=== PATIENT | female | born 1990 | race Caucasian/White ===

== ENCOUNTER 2019-08-30 21:33 | Emergency (ER) | payer MEDICAID, OTHER ==
[~2019-08-30] VITALS: Ht 160 cm; Wt 68.0 kg
--- NOTE | 2019-08-30 22:22 | ED EENT ---
History of Present Illness General Chief Complaint: Oral/Throat Problems Stated Complaint: SORE THROAT/BODY ACHES Nursing Triage Note: PT COMPLAINING OF A SORE THROAT AND RIGHT EAR PAIN SINCE THIS MORNING Source: patient History of Present Illness Date Seen by Provider: Aug 30, 2019 Time Seen by Provider: 22:22 Initial Comments 29-year-old female presenting with complaints of right ear pain and sore throat since this morning. She is also approximately 5 months . She came in due to the pain was concerned about infection. She has had a mild cough but is not consistent with her. She has not had any fever. She does have generalized body aches. She denies having any significant nasal drainage or congestion. She denies any vaginal bleeding or discharge. She has no abdominal pain. She is not aware of having any specific ill contacts. Allergies and Home Medications Allergies Coded Allergies: Penicillins (Unverified Allergy, Mild, Rash, 09/06/07) Home Medications Pseudoephedrine HCl 30 Mg Tablet, 30 MG PO Q4H PRN for CONGESTION Prescribed by: CHOCO ARRIAGA on 08/30/19 8302 Patient Home Medication List Home Medication List Reviewed: Yes Review of Systems Review of Systems Constitutional: No chills, No fever; malaise Eyes: No Symptoms Reported Ears: Pain (right ear since this morning); Denies Bloody Discharge, Denies Clear Discharge, Denies Purulent Discharge, Denies Serosanguinous Discharge Nose: denies epistaxis, denies pain, denies bloody discharge, denies clear discharge, denies purulent discharge, denies serosanguinous discharge Mouth: no symptoms reported Throat: pain; denies discharge, denies neck stiffness; hoarse, painful swallowing Respiratory: cough (mild occasional cough that is dry); No dyspnea on exertion, No phlegm, No short of breath, No wheezing Cardiovascular: No chest pain Gastrointestinal: no symptoms reported Musculoskeletal: muscle pain (generalized body aches) Skin: No rash Neurological: No Symptoms Reported Hematologic/Lymphatic: No Symptoms Reported, Swollen Glands (right submandibular glands) Past Rrrcmrk-Grujzz-Zunnim Hx Past Med/Social Hx: Reviewed Nursing Past Med/Soc Hx Patient Social History Recent Foreign Travel: No Contact w/Someone Who Travel: No Recent Infectious Disease Expo: No Recent Hopitalizations: No Physical Abuse: No Sexual Abuse: No Mistreated: No Past Medical History Surgeries: Yes Tonsillectomy Respiratory: No Cardiac: No Neurological: No Genitourinary: No Gastrointestinal: No Musculoskeletal: No Endocrine: No HEENT: No Cancer: No Psychosocial: No Integumentary: No Blood Disorders: No Physical Exam Vital Signs Vital Signs - First Documented 08/30/19 21:42 Temp 36.5 Pulse 97 Resp 16 B/P (MAP) 110/62 (78) Pulse Ox 100 O2 Delivery Room Air Height, Weight, BMI Height: '" Weight: lbs. oz. kg; 26.00 BMI Method: General Appearance: WD/WN, no apparent distress Eyes: bilateral eye normal inspection, bilateral eye PERRL, bilateral eye EOMI Ears: right ear other (trace amount of clear fluid behind the TM. There is no erythema.); bilateral ear auricle normal, bilateral ear canal normal, bilateral ear TM normal Nose: normal inspection Mouth/Throat: normal mouth inspection, pharynx normal; No pharynx swelling; pharynx tenderness, other (no significant pharyngeal erythema or exudate pr esent) Neck: full range of motion, supple, lymphadenopathy (R) (submandibular lymph node swollen on the right side and tender to palpation.) Cardiovascular: normal peripheral pulses, regular rate, rhythm Respiratory: chest non-tender, lungs clear, normal breath sounds, no respiratory distress, no accessory muscle use Neurologic/Psychiatric: alert, normal mood/affect, oriented x 3 Skin: normal color, warm/dry; No rash Progress/Results/Core Measures Results/Orders Lab Results Laboratory Tests Test 08/30/19 22:30 Range/Units Group A Streptococcus Screen NEGATIVE NEGATIVE My Orders Orders - CHOCO ARRIAGA MD Rapid Strep A Screen (08/30/19 22:31) Vital Signs/I&O 08/30/19 08/30/19 21:42 23:06 Temp 36.5 Pulse 97 97 Resp 16 16 B/P (MAP) 110/62 (78) 110/62 Pulse Ox 100 100 O2 Delivery Room Air Room Air Blood Pressure Mean: 78 Progress Progress Note #1: Progress Note Rapid strep test obtained to evaluate for strep throat. Counseled patient that just on exam her ear and throat did not look significantly red and there is no dullness or erythema to indicate a severe ear infection currently. However with her symptoms started today could be really early on then an infection. If she is positive for strep throat will certainly start her on some antibiotics. Otherwise once the test his back will check in with Dr. Tolliver from an OB standpoint about medications and treatment Progress Note #2: Progress Note Rapid strep test was negative. A culture will be done but that will take a few days. Continue with symptomatic treatment and after discussion with Dr. Tolliver he recommended Tylenol for pain, Benadryl if needed for congestion, Mucinex to loosen congestion and cough, and Sudafed to try and dry up some of the fluid seen in the right ear to help with her pain. Prescription was provided for this so that it might make it easier for her to obtain the medication. Departure Impression Primary Impression: Otalgia of right ear Additional Impressions: Acute viral pharyngitis Generalized body aches Incidental intrauterine Disposition: 01 HOME, SELF-CARE Condition: Stable Departure-Patient Inst. Decision time for Depature: 22:52 Referrals: ELINA FELDER MD (PCP/Family) Primary Care Physician ANGEL TOLLIVER DO Patient Instructions: Sore Throat, Adult (DC), Viral Pharyngitis (DC), Viral Upper Respiratory Infection, Adult (DC) Add. Discharge Instructions: Stay well hydrated and drink extra fluids to help with your symptoms Taking sudafed would help with some of the fluid and pressure in your ear. Tylenol for pain. You may use Benadryl for congestion and cough. Mucinex would help to loosen congestion and cough as well All discharge instructions reviewed with patient and/or family. Voiced understanding. Scripts Pseudoephedrine HCl (Sudafed) 30 Mg Tablet 30 MG PO Q4H PRN for CONGESTION for 5 Days, #30 TAB 0 Refills Prov: CHOCO ARRIAGA MD 08/30/19 CHOCO ARRIAGA MD Aug 30, 2019 22:22
[2019-08-30] MEDS ORDERED: PSEU-137 PO (22:57)
[2019-08-30 23:06] VITALS: BP 110/62
== END 2019-08-30 23:06 | disposition home or self-care (01) ==
LOC: EDUNIT# 21:33 → ER FS 21:37
DX: H92.01 Otalgia, right ear (principal); J02.9 Acute pharyngitis, unspecified; Z33.1 Pregnant state, incidental; Z88.0 Allergy status to penicillin; Z90.89 Acquired absence of other organs
CPT/HCPCS: 87430; 99284

== ENCOUNTER 2019-12-10 06:00 | Inpatient (IN) | payer MEDICAID ==
[~2019-12-10] VITALS: Ht 162 cm; Wt 78.4 kg
[2019-12-10] VITALS (66 sets, daily range): BP systolic 92–129; BP diastolic 52–77
[~2019-12-10 06:00] MED LIST: PSEU-137 PO
--- NOTE | 2019-12-10 06:05 | NUR ---
ANAMARIA YOUSIF I presented to unit via from ED, accompanied by mother , with c/o INDUCTION 39wks . ANAMARIA YOUSIF I weighed, gowned, voided, and to bed. EFHM and TOCO applied, VS taken. ANAMARIA YOUSIF I oriented to bed controls, call light, TV, heat, and A/C controls.
--- OUTSIDE RECORDS SUMMARY | 2019-12-10 06:07 | XMS REPORT | Continuity of Care Document ---
Author Organization Unknown Address Unknown Phone Unavailable Allergies Active Description Code Type Severity Reaction Onset Reported/Identified Relationship to Patient Clinical Status Yes Penicillins [id number] Drug Aller gy Mild Rash 09/06/2007 Medications There is no data. Problems Date Dx Coded Attending Type Code Diagnosis Diagnosed By 09/03/2019 CHOCO ARRIAGA MD, Ot H92.0 1 OTALGIA, RIGHT EAR 09/03/2019 CHOCO ARRIAGA MD, Ot J02.9 ACUTE PHARYNGITIS, UNSPECIFIED 09/03/2019 CHOCO ARRIAGA MD, Ot R52 PAIN, UNSPECIFIED 09/03/2019 CHOCO ARRIAGA MD, Ot Z33.1 STATE, INCIDENTAL 09/03/2019 CHOCO ARRIAGA MD, Ot Z88.0 ALLERGY STATUS TO PENICILLIN 09/03/2019 CHOCO ARRIAGA MD, Ot Z90.8 9 ACQUIRED ABSENCE OF OTHER ORGANS Procedures There is no data. Results Test Result Range GC/CHLAMYDIA (SWAB OR URINE)-RAPID - 15:41 CHLAMYDIA TRACHOMATIS RNA, TMA NOT DETECTED NOT DETECTED NEISSERIA GONORRHOEAE RNA, TMA DETECTED NOT DETECTED COMMENT NR SUREPATH PAP RFX HPV mRNA E6/E7 - 15:41 CLINICAL INFORMATION: NRG LMP: 01/14/2019 NRG PREV. PAP: AGE 18 NRG PREV. BX: NONE NRG SOURCE: Cervix NRG STATEMENT OF ADEQUACY: NRG INTERPRETATION/RESULT: NRG LEGISLATIVE AIDE: NRG GENERAL CATEGORIZATION: NRG COMMENT: NRG PATHOLOGIST: NRG COMMENT NRG GC/CHLAMYDIA (SWAB OR URINE)-RAPID - 07/23 15:49 CHLAMYDIA TRACHOMATIS RNA, TMA NOT DETECTED NOT DETECTED NEISSERIA GONORRHOEAE RNA, TMA NOT DETECTED NOT DETECTED COMMENT NR SUREPATH PAP RFX HPV mRNA E6/E7 - 15:49 CLINICAL INFORMATION: NRG LMP: NRG PREV. PAP: NRG PREV. BX: NRG SOURCE: Vagina NRG STATEMENT OF ADEQUACY: NRG INTERPRETATION/RESULT: NRG LEGISLATIVE AIDE: NRG REVIEW LEGISLATIVE AIDE: NRG INFECTION: NRG COMMENT NRG HIV ANTIGEN/ANTIBODY - 05/15/19 16:30 HIV AG/AB, 4TH GEN NON-REACTIVE NON-REG CTIVE CBC - 05/15/19 16:30 WHITE BLOOD CELL COUNT 10.7 Thousand/uL 3.8-10.8 RED BLOOD CELL COUNT 4.05 Million/uL 3.8 0-5.10 HEMOGLOBIN 12.6 g/dL 11.7-15.5 HEMATOCRIT 38.7 % 35.0-45.0 MCV 95.6 fL 80.0-100.0 MCH 31.1 pg 27.0-33.0 MCHC 32.6 g/dL 32.0-36.0 RDW 12.2 % 11.0-15.0 PLATELET COUNT 346 Thousand/uL 140-400 MPV 9.4 fL 7.5-12.5 ABSOLUTE NEUTROPHILS 7083 cells/uL 1500- 7800 ABSOLUTE LYMPHOCYTES 2836 cells/uL 850-3 900 ABSOLUTE MONOCYTES 642 cells/uL 200-950 ABSOLUTE EOSINOPHILS 107 cells/uL 15-500 ABSOLUTE BASOPHILS 32 cells/uL 0-200 NEUTROPHILS 66.2 % NRG LYMPHOCYTES 26.5 % NRG MONOCYTES 6.0 % NRG EOSINOPHILS 1.0 % NRG BASOPHILS 0.3 % NRG BLOOD TPYE/RH FACTOR - 05/15/19 16:30 ABO GROUP A NRG RH TYPE RH(D) NEGATIVE NRG ANTIBODY SCREEN - 05/15/19 16:30 ANTIBODY SCREEN, RBC W/REFL ID, TITER AND AG NO ANTIBODIES DETECTED NRG SYPHILIS (RPR W/ REFLEX CONFIRMATION) - 05/15/19 16:30 RPR (DX) W/REFL TITER AND CONFIRMATORY TESTING NON-REACTIVE NON-REACTIVE HEP B SURFACE ANTIGEN - 05/15/19 16:30 HEPATITIS B SURFACE ANTIGEN NON-REACTIVE NON-REACTIVE RUBELLA IMMUNE STATUS - 05/15/19 16:30 RUBELLA ANTIBODY (IGG) 2.07 index NRG QUAD SCREEN - 07/16/19 16:32 Maternal Weight 136 lbs NRG Est'd Date of Delivery 12/17/2019 NRG ISA Determined by LMP NRG Mother's Ethnic Origin NRG Number of Fetuses 1 NRG Insulin Depend Diabetic NO NRG Repeat Specimen NO NRG Hx Of Neural Tube Defects NO NRG Prev Down Synd NO NRG Donor Egg NO NRG Donor Age: Egg Retrieval NOT GIVEN NRG INTERPRETATION: NRG Risk for ONTD <1 IN 5000 NRG Age Risk Down Syndrome 1 IN 940 NRG SHERLY Down Syndrome Risk <1 IN 5000 NRG SHERLY Trisomy 18 Risk <1 IN 5000 NRG AFP, Serum 42.2 ng/mL NRG AFP MoM 0.93 NRG Estriol, Free 1.06 ng/mL NRG Estriol MoM 0.82 NRG hCG, Serum 16.18 IU/mL NRG hCG MoM 0.63 NRG Inhibin A, Dimeric 110 pg/mL NRG Inhibin A MoM 0.63 NRG COMMENTS: NRG COMMENT NRG Calc'd Gestational Age 18.0 weeks NRG Cigarette smoker NOT GIVEN NRG Streptococcus pyogenes antigen detection - 08/30/19 22:30 Streptococcus pyogenes antigen detection NEGATIVE NEGATIVE Bacterial throat culture - 08/30/19 22:3 0 Bacterial throat culture NBS NRG GLUCOSE SAHIL 1 HOUR - 10/04/19 09:38 GLUCOSE, POSTPRANDIAL/ 1 HOUR 135 mg/dL See Note: CBC - 10/04/19 09:38 WHITE BLOOD CELL COUNT 9.9 Thousand/uL 3 .8-10.8 RED BLOOD CELL COUNT 3.59 Million/uL 3.8 0-5.10 HEMOGLOBIN 11.4 g/dL 11.7-15.5 HEMATOCRIT 33.4 % 35.0-45.0 MCV 93.0 fL 80.0-100.0 MCH 31.8 pg 27.0-33.0 MCHC 34.1 g/dL 32.0-36.0 RDW 12.3 % 11.0-15.0 PLATELET COUNT 440 Thousand/uL 140-400 MPV 9.6 fL 7.5-12.5 ABSOLUTE NEUTROPHILS 7395 cells/uL 1500- 7800 ABSOLUTE LYMPHOCYTES 1822 cells/uL 850-3 900 ABSOLUTE MONOCYTES 535 cells/uL 200-950 ABSOLUTE EOSINOPHILS 129 cells/uL 15-500 ABSOLUTE BASOPHILS 20 cells/uL 0-200 NEUTROPHILS 74.7 % NRG LYMPHOCYTES 18.4 % NRG MONOCYTES 5.4 % NRG EOSINOPHILS 1.3 % NRG BASOPHILS 0.2 % NRG SYPHILIS (RPR W/ REFLEX CONFIRMATION) - 10/04/19 09:38 RPR (DX) W/REFL TITER AND CONFIRMATORY TESTING NON-REACTIVE NON-REACTIVE CULTURE, GROUP B STREP (VAGINAL) - 11/14 08:41 STREPTOCOCCUS, GROUP B CULTURE SEE NOTE NRG Encounters ACCT No. Visit Date/Time Discharge Status Pt. Type Provider Facility Loc./Unit Complaint [id number] 12/05/2019 10:00:00 12/05/2019 23:59:5 9 [facility] [id number] 11/15/2019 08:30:00 Document Registration [id number] 10/04/2019 08:30:00 Document Registration [id number] 07/16/2019 15:45:00 Document Registration [id number] 05/15/2019 15:45:00 Document Registration [id number] 01/14/2019 15:00:00 Document Registration [id number] 08/30/2019 21:37:00 019 23:06:00 DIS Outpatient BART SOLIS, CHOCO [facility] ER FS SORE THROAT/BODY ACHES [id number] 12/10/2019 06:00:00 P EN Preadmit ANGEL LEE DO, I NDUCTION
[2019-12-10] MEDS ORDERED: D5 LR IV SOLUTION 1,000 ML IV ONE (06:26)
[2019-12-10 06:33] LABS: BASOPHILS % (AUTO) 0 % (0-10); EOSINOPHILS # (AUTO) 0.2 10^3/uL (0.0-0.3); EOSINOPHILS % (AUTO) 2 % (0-10); HEMATOCRIT 37 % (35-52); HEMOGLOBIN 12.1 G/DL (11.5-16.0); LYMPHOCYTES # (AUTO) 2.7 X 10^3 (1.0-4.0); LYMPHOCYTES % (AUTO) 22 % (12-44); MEAN CORPUSCULAR HEMOGLOBIN 30 PG (25-34); MEAN CORPUSCULAR HGB CONC 33 G/DL (32-36); MEAN CORPUSCULAR VOLUME 92 FL (80-99); MEAN PLATELET VOLUME 9.3 FL (7.4-10.4); MONOCYTES # (AUTO) 1.1 X 10^3 (0.0-1.0); MONOCYTES % (AUTO) 9 % (0-12); NEUTROPHILS # (AUTO) 8.1 X 10^3 (1.8-7.8); NEUTROPHILS % (AUTO) 67 % (42-75); PLATELET COUNT 433 10^3/uL (130-400); RED CELL DISTRIBUTION WIDTH 14.2 % (10.0-14.5)
[2019-12-10] MEDS: D5 LR IV SOLUTION 1,000 ML IV SCH ×2 (06:36→14:34)
[2019-12-10] MEDS ORDERED: fentaNYL 2 mcg/ml BUPIVA 0.125 100 ML ONE (07:09)
--- NOTE | 2019-12-10 07:23 | History & Physical-OB/GYN ---
History of Present Illness History of Present Illness Reason for visit/HPI Ms. Beverly, 39 1/7 weeks gestation, presents to Labor & Delivery for Pitocin Induction of Labor Date of Admission Dec 10, 2019 at 06:01 Date Seen by a Provider: Dec 10, 2019 Time Seen by a Provider: 07:00 I consulted on this patient on 12/10/19 07:18 Attending Physician Pablo Tolliver DO Admitting Physician Pablo Tolliver DO Consult Allergies and Home Medications Allergies Coded Allergies: Penicillins (Unverified Allergy, Mild, Rash, 09/06/07) Home Medications Pseudoephedrine HCl 30 Mg Tablet, 30 MG PO Q4H PRN for CONGESTION Prescribed by: CHOCO ARRIAGA on 08/30/19 5346 Patient Home Medication List Home Medication List Reviewed: Yes Past Fwepccs-Czgmps-Yuvjcd Hx Patient Social History Marrital Status: single Number of Children: 0 Number of living children: 0 Employed/Student: employed Alcohol Use: Denies Use Recreational Drug Use: No Smoking Status: Current Everyday Smoker Recent Hopitalizations: No Surgeries Yes Tonsillectomy Respiratory No Cardiovascular No Neurological No Genitourinary No Gastrointestinal No Musculoskeletal No Endocrine History of Endocrine Disorders: No HEENT History of HEENT Disorders: No Cancer No Psychosocial History of Psychiatric Problem: No Integumentary History of Skin or Integumenta: No Blood Transfusions History of Blood Disorders: No Review of Systems Constitutional: see HPI Physical Exam Physical Exam Vital Signs Vital Signs Date Time Temp Pulse Resp B/P (MAP) Pulse Ox O2 Delivery O2 Flow Rate FiO2 12/10/19 06:40 36.6 103 18 98 Room Air Capillary Refill : Less Than 3 Seconds Labs Laboratory Tests 12/10/19 06:20: White Blood Count 12.0H, Red Blood Count 4.02L, Hemoglobin 12.1, Hematocrit 37, Mean Corpuscular Volume 92, Mean Corpuscular Hemoglobin 30, Mean Corpuscular Hemoglobin Concent 33, Red Cell Distribution Width 14.2, Platelet Count 433H, Mean Platelet Volume 9.3, Neutrophils (%) (Auto) 67, Lymphocytes (%) (Auto) 22, Monocytes (%) (Auto) 9, Eosinophils (%) (Auto) 2, Basophils (%) (Auto) 0, Neutrophils # (Auto) 8.1H, Lymphocytes # (Auto) 2.7, Monocytes # (Auto) 1.1H, Eosinophils # (Auto) 0.2, Basophils # (Auto) 0.0 General Appearance: No Apparent Distress, WD/WN Respiratory: Chest Non Tender, Lungs Clear Cardiovascular: Regular Rate, Rhythm, No Murmur Abdominal: normal bowel sounds Labia: WNL Vagina: WNL Cervix: WNL Cervix OS: open (0.5 cm/40%/-3) Uterus: WNL, Enlarged (Gravid) Extremity: Normal Inspection, Non Tender Assessment/Plan Assessment and Plan Assessment: Intrauterine at 39 1/7 weeks Plan: Pitocin Induction of Labor. AROM. Epidural for antepartum pain management. I expect a normal spontaneous vaginal delivery. Admission Diagnosis Admission Status: Inpatient Order (span 2 midnights) Reason for Inpatient Admission: Pitocin Induction of Labor PABLO TOLLIVER DO Dec 10, 2019 07:23
[2019-12-10] MEDS ORDERED: OXYTOCIN PRE-MIX DRIP 500 ML IV ONE (07:57)
--- NOTE | 2019-12-10 08:05 | NUR ---
0805 Karen TANG CRNA here for epidural placement. Procedure explained, consent reviewed and signed by anesthesia. Questions answered to patient's satisfaction. Time out taken to verify correct patient/procedure. 0809 Patient up to side of bed, assisted into sitting position. 0811 Betadine prep done x3 and sterile drape applied. 0813 Local done, see anesthesia record. 0816 Test dose given, see anesthesia record for drug and dosage. Epidural catheter secured in place. Epidural placement complete. 0820 Assisted back into bed, monitors adjusted. Epidural dosed, see anesthesia record. Epidural of Sufenta/Bupvicaine @12cc/hr stated per pump. Patient tolerated procedure well.
[2019-12-10] MEDS: EPIDURAL (fentaNYL 2 MCG/ML BUPIVA 0.125%)100 ML BAG EPI PRN ×2 (08:25→15:42)
[2019-12-10] MEDS ORDERED: OXYTOCIN PRE-MIX DRIP 500 ML IV SCH ×2 (08:26→21:16)
[2019-12-10] MEDS ORDERED: LACTATED RINGERS 1,000 ML IV SCH (08:38)
[2019-12-10] MEDS ORDERED: METOCLOPRAMIDE INJ 10 MG/2 ML (REGLAN) IV PRN (08:45)
[2019-12-10] MEDS ORDERED: diphenhydrAMINE 50 MG/ML INJ (BENADRYL) IV PRN (08:45)
[2019-12-10] MEDS ORDERED: NALOXONE 0.4 MG/ML 1 ML (NARCAN) VIAL IV PRN ×2 (08:45)
[2019-12-10] MEDS ORDERED: ONDANSETRON 4 MG/2 ML (SDV) Z0FRAN IV PRN (08:45)
[2019-12-10] MEDS ORDERED: ACETAMINOPHEN 500 MG TAB (TYLENOL) PO PRN (15:30)
[2019-12-10] MEDS ORDERED: LIDOCAINE 1% INJ 20 ML 20 ML VIAL ONE (19:38)
--- NOTE | 2019-12-10 21:23 | OB Labor & Delivery Record ---
Vag Delivery Note Vag Delivery Note Date of Delivery: 12/10/19 Preoperative Diagnosis: Mesha melara a (29 /Para / ,Gestational Age (wks)39w Postoperative Diagnosis: Same Surgeon: ANGEL LEE Legal Billing Analyst: [None] Anesthesia: [Epidural and Pudendal Block] Delivery Type: [Normal Spontaneous Vaginal Delivery with Midline Episiotomy and Repair] Findings: [] Viable [Female] infant, apgars [8, 9], weight [4 lb 14 oz] Lacerations: Midline epsiotomy Intact placenta with 3 vessel cord. No nuchal cord, body cord or shoulder dystocia Estimated Blood Loss: [300] ml Complications: Nuchal cord x 2, doubly clamped and cut Condition: Stable Description of Procedure: The patient is a 29 year old female who presented [Pitocin Induction of Labor]. She was admitted and informed consent was obtained. Her labor course was unremarkable. She progressed to complete dilatation and began to push. She was then set up for delivery. The 's head was delivered atraumatically in the [ORALIA] position over a midline episiotomy. Nuchal cord x 2, doubly clamped and cut. The shoulders and remainder of the 's body were then delivered without difficulty. Upon delivery, the head was held below the level of the perineum and the mouth and nares were bulb suctioned. The was handed off to the pediatric staff where NRP protocol was followed. An intact placenta with 3-vessel cord delivered via Nallely and there was found to be minimal bleeding.~ Vigorous fundal massage was performed and the fundus was found to be firm. IV oxytocin was given. Examination of the vagina and perineum revealed the midline episiotomy, which was repaired in the usual fashion with 2-0 and 3-0 vicryl suture. Following the repair, sponge, instrument and needle counts were correct. Mom and baby were both in stable condition in the labor suite. Vitals - Labs Vital Signs - I&O Vital Signs Date Time Temp Pulse Resp B/P (MAP) Pulse Ox O2 Delivery O2 Flow Rate FiO2 12/10/19 18:45 83 18 110/67 (81) 98 Room Air 12/10/19 18:42 36.5 12/10/19 18:30 90 18 116/69 (85) 99 Room Air 12/10/19 18:16 96 18 107/55 (72) 98 Room Air 12/10/19 18:01 94 18 113/64 (80) 98 Room Air 12/10/19 17:46 92 18 115/61 (79) 98 Room Air 12/10/19 17:30 92 18 113/59 (77) 97 Room Air 12/10/19 17:16 88 18 113/56 (75) 97 Room Air 12/10/19 17:00 87 18 112/61 (78) 97 Room Air 12/10/19 16:46 86 18 114/62 (79) 96 Room Air 12/10/19 16:32 84 18 119/59 (79) 96 Room Air 12/10/19 16:15 86 18 120/67 (84) 98 Room Air 12/10/19 16:01 88 18 115/70 (85) 97 Room Air 12/10/19 15:45 36.7 95 18 118/62 (80) 98 Room Air 12/10/19 15:30 88 18 110/63 (79) 97 Room Air 12/10/19 15:15 89 18 110/57 (74) 96 Room Air 12/10/19 15:00 81 18 102/60 (74) 97 Room Air 12/10/19 14:45 90 18 104/62 (76) 98 Room Air 12/10/19 14:33 36.6 12/10/19 14:30 89 18 103/55 (71) 97 Room Air 12/10/19 14:15 90 18 108/58 (75) 98 Room Air 12/10/19 14:00 85 18 105/53 (70) 97 Room Air 12/10/19 13:46 91 18 109/55 (73) 97 Room Air 12/10/19 13:30 89 18 106/63 (77) 97 Room Air 12/10/19 13:15 90 18 101/61 (74) 98 Room Air 12/10/19 13:00 36.7 86 18 99/61 (74) 98 Room Air 12/10/19 12:45 82 18 97/58 (71) 97 Room Air 12/10/19 12:30 81 18 95/55 (68) 97 Room Air 12/10/19 12:15 36.6 90 18 92/52 (65) 97 Room Air 12/10/19 12:00 84 18 98/57 (71) 97 Room Air 12/10/19 11:45 86 18 99/54 (69) 97 Room Air 12/10/19 11:32 87 18 104/57 (73) 96 Room Air 12/10/19 11:15 84 18 98/56 (70) 97 Room Air 12/10/19 11:00 94 18 106/57 (73) 97 Room Air 12/10/19 10:45 93 18 104/55 (71) 97 Room Air 12/10/19 10:32 87 18 107/60 (76) 97 Room Air 12/10/19 10:17 36.7 93 18 111/54 (73) 97 Room Air 12/10/19 10:01 89 18 106/55 (72) 97 Room Air 12/10/19 09:46 84 18 109/60 (76) 98 Room Air 12/10/19 09:42 36.6 12/10/19 09:30 85 18 102/57 (72) 97 Room Air 12/10/19 09:20 36.5 12/10/19 09:16 85 18 107/59 (75) 97 Room Air 12/10/19 09:00 92 18 109/58 (75) 97 Room Air 12/10/19 08:55 93 18 119/70 (86) Room Air 12/10/19 08:49 95 18 107/63 (78) 97 Room Air 12/10/19 08:44 97 18 103/57 (72) 96 Room Air 12/10/19 08:40 91 18 111/59 (76) 97 Room Air 12/10/19 08:36 100 18 129/60 (83) Room Air 12/10/19 08:28 36.9 100 18 109/59 (76) 96 Room Air 12/10/19 08:25 94 18 110/59 (76) Room Air 12/10/19 08:20 102 18 114/59 (77) Room Air 12/10/19 08:17 112 18 122/77 (92) 98 Room Air 12/10/19 08:14 102 18 126/77 (93) Room Air 12/10/19 08:11 101 18 127/62 (83) 98 Room Air 12/10/19 07:09 36.6 12/10/19 06:40 36.6 103 18 98 Room Air Labs Laboratory Tests 4/7/20 06:20: White Blood Count 12.0H, Red Blood Count 4.02L, Hemoglobin 12.1, Hematocrit 37, Mean Corpuscular Volume 92, Mean Corpuscular Hemoglobin 30, Mean Corpuscular Hemoglobin Concent 33, Red Cell Distribution Width 14.2, Platelet Count 433H, Mean Platelet Volume 9.3, Neutrophils (%) (Auto) 67, Lymphocytes (%) (Auto) 22, Monocytes (%) (Auto) 9, Eosinophils (%) (Auto) 2, Basophils (%) (Auto) 0, Neutrophils # (Auto) 8.1H, Lymphocytes # (Auto) 2.7, Monocytes # (Auto) 1.1H, Eosinophils # (Auto) 0.2, Basophils # (Auto) 0.0 ANGEL LEE DO Dec 10, 2019 21:23
[2019-12-10] MEDS ORDERED: MEASLES,MUMPS,RUBELLA 1 EA INJ SQ ONE (21:30)
[2019-12-10] MEDS ORDERED: TETANUS,DIPTH,PERTUSS P/F (BOOSTRIX) 0.5 ML VIAL IM ONE (21:30)
[2019-12-10] MEDS ORDERED: WITCH HAZEL(TUCKS) 40 EA JAR TOP PRN (21:30)
[2019-12-10] MEDS ORDERED: BENZOCAINE/MENTHOL (DERMOPLAST) 60 ML CAN TP PRN (21:30)
[2019-12-10] MEDS ORDERED: DIBUCAINE (NUPERCAINAL) 1% OINT 30 GM TOP PRN (21:30)
[2019-12-10] MEDS ORDERED: LIDOCAINE 1% INJ 20 ML 20 ML VIAL INJ ONE (22:00)
[2019-12-10] MEDS ORDERED: CATHETER FLUSH 10 ML SYR IV SCH (22:00)
[2019-12-10] MEDS: IBUPROFEN 800 MG (MOTRIN) TAB PO SCH (22:36)
--- NOTE | 2019-12-10 23:30 | NUR ---
Pt. ambulated to bathroom with stand by assist without difficulty. Positive void noted.
[2019-12-11] MEDS: ACETAMINOPHEN 500 MG TAB (TYLENOL) PO SCH ×4 (00:39→21:51)
--- NOTE | 2019-12-11 00:45 | NUR ---
Pt. transferred to room 309 via wheelchair, accompanied by family and baby. Pt. oriented to room, call light, and thermostat. PP folder given and explained. Fresh ice water provided.
[2019-12-11 03:50] VITALS: BP 110/65
[2019-12-11 05:49] LABS: BASOPHILS % (AUTO) 0 % (0-10); EOSINOPHILS # (AUTO) 0.1 10^3/uL (0.0-0.3); EOSINOPHILS % (AUTO) 0 % (0-10); HEMATOCRIT 30 % (35-52); HEMOGLOBIN 10.1 G/DL (11.5-16.0); LYMPHOCYTES # (AUTO) 2.2 X 10^3 (1.0-4.0); LYMPHOCYTES % (AUTO) 12 % (12-44); MEAN CORPUSCULAR HEMOGLOBIN 31 PG (25-34); MEAN CORPUSCULAR HGB CONC 34 G/DL (32-36); MEAN CORPUSCULAR VOLUME 92 FL (80-99); MEAN PLATELET VOLUME 9.5 FL (7.4-10.4); MONOCYTES % (AUTO) 6 % (0-12); NEUTROPHILS # (AUTO) 14.9 X 10^3 (1.8-7.8); NEUTROPHILS % (AUTO) 82 % (42-75); PLATELET COUNT 379 10^3/uL (130-400); RED CELL DISTRIBUTION WIDTH 14.3 % (10.0-14.5); WHITE BLOOD COUNT 18.2 10^3/uL (4.3-11.0)
[2019-12-11] MEDS: IBUPROFEN 800 MG (MOTRIN) TAB PO SCH ×2 (06:00→20:08)
[2019-12-11] MEDS ORDERED: PRENATAL VITAMIN 1 EA TAB PO SCH (07:00)
--- NOTE | 2019-12-11 07:23 | Progress Note ---
Standard Progress Note Progress Notes/Assess & Plan Date Seen by a Provider: Dec 11, 2019 Time Seen by a Provider: 07:05 Progress/Assessment & Plan Subjective: Ms. Beverly is PPD#1 from a , her only complaint is that her bottom hurts. States that bleeding has slowed. Objective: Vital signs stable Heart: Regular rate and rhythm without appreciable murmur Lungs: Clear to auscultation with good respiratory effort Abdomen: Good bowel sounds, no rebound or guarding, fundus 8 cm below umbilicus Assessment: PPD#1 Plan: Normal care. Pain management. Comfort care. If continues to be stable, I will discharge her tomorrow. ANGEL LEE DO Dec 11, 2019 07:23
[2019-12-11 08:30] VITALS: BP 89/52
--- NOTE | 2019-12-11 11:06 | NUR ---
Rhogam (2 syringes given) IM. Instructions to pt about receiving Rhogam after delivery, SAB or TAB.
--- NOTE | 2019-12-11 11:07 | Anesthesia-Regional Post-Op ---
Regional Patient Condition Mental Status: Alert, Oriented x3 Circulation: Same as Pre-Op Headache: Absent Sensation: Full Recovery Motor Block: Absent Post Op Complications Complications None Follow Up Care/Instructions Patient Instructions None needed. Anesthesia/Patient Condition Patient is doing well, no complaints, stable vital signs, no apparent adverse anesthesia problems. No complications reported per nursing. ADRIEL TANG CRNA Dec 11, 2019 11:07
[2019-12-11 15:30] VITALS: BP 108/61
[2019-12-11 20:05] VITALS: BP 118/80
[2019-12-11] MEDS: DOCUSATE SODIUM 100 MG (COLACE) CAP PO SCH (20:08)
[2019-12-12 02:10] VITALS: BP 105/72
[2019-12-12] MEDS: IBUPROFEN 800 MG (MOTRIN) TAB PO SCH (04:08)
[2019-12-12] MEDS: ACETAMINOPHEN 500 MG TAB (TYLENOL) PO SCH ×2 (04:08→11:26)
[2019-12-12 08:30] VITALS: BP 112/68
--- NOTE | 2019-12-12 09:30 | NUR ---
Dr Tolliver here to see pt in room. Discharge discussed.
[2019-12-12] MEDS ORDERED: OXYC5TAB96 PO (09:36)
[2019-12-12] MEDS ORDERED: IBUP-1780 PO (09:36)
[2019-12-12] MEDS ORDERED: DCS100C PO (09:36)
[2019-12-12] MEDS ORDERED: ACET-93 PO (09:36)
[2019-12-12] MEDS: DOCUSATE SODIUM 100 MG (COLACE) CAP PO SCH (09:37)
--- NOTE | 2019-12-12 09:41 | Discharge Summary ---
Diagnosis/Chief Complaint Date of Admission Dec 10, 2019 at 06:01 Date of Discharge December 12, 2019 Discharge Date: Dec 12, 2019 Discharge Time: 10:00 Admission Diagnosis Admission Diagnosis Intrauterine at 39 1/7 weeks Discharge Diagnosis Intrauterine at 39 1/7 weeks--delivered Reason Hospital Visit Ms. Beverly, 39 1/7 weeks gestation, presents to Labor & Delivery for Pitocin Induction of Labor Discharge Summary Hospital Course Was the Problem List Reviewed?: Yes Hospital Course Ms. Beverly at 39 1/7 weeks was admitted for Pitocin Induction of Labor. I artificially ruptured her membranes. She received an epidural for antepartum pain management. She progressed to complete, then delivered a healthy viable female . The remainder of her hospitalization was unremarkable. Her vital signs remained stable throughout her hospitalization. She will be discharged to home with instructions, prescriptions, and a follow up appointment. Labs Laboratory Tests 12/10/19 06:20: White Blood Count 12.0H, Red Blood Count 4.02L, Platelet Count 433H, Neutrophils # (Auto) 8.1H, Monocytes # (Auto) 1.1H 12/11/19 05:20: White Blood Count 18.2H, Red Blood Count 3.28L, Neutrophils # (Auto) 14.9H, Hemoglobin 10.1L, Hematocrit 30L, Neutrophils (%) (Auto) 82H Procedures None. Discharge Physical Examination Allergies: Coded Allergies: Penicillins (Unverified Allergy, Mild, Rash, 09/06/07) Vitals & I&Os Vital Signs Date Time Temp Pulse Resp B/P (MAP) Pulse Ox O2 Delivery O2 Flow Rate FiO2 12/12/19 02:10 35.8 78 18 105/72 (83) 98 Room Air General Appearance: Alert, Oriented X3, Cooperative HEENT: Atraumatic Respiratory: Clear to Auscultation, Normal Air Movement Cardiovascular: Regular Rate, No Murmurs Abdominal: Normal Bowel Sounds, No Tenderness Extremities: No Clubbing, No Cyanosis Skin: No Rashes Neuro: Normal Gait, Normal Speech Psych/Mental Status: Mental Status NL Discharge Home Medications Reviewed and agree with Discharge Medication list on patient's Discharge Instruction sheet Instructions to Patient/Family Please see electronic discharge instructions given to patient. Clinical Quality Measures DVT/VTE Risk/Contraindication: Risk Factor Score Per Nursin RFS Level Per Nursing on Admit: 1=Low/No VTE PPX ANGEL LEE DO Dec 12, 2019 09:41
--- NOTE | 2019-12-12 12:15 | NUR ---
ANAMARIA YOUSIF Troy demonstrates understanding of discharge instructions and accurately returns instructions upon questioning. Copy of Post-Discharge Instructions and Medication Discharge Instructions given to patient. BENJACLAUDIAANAMARIA Troy is able to manage continuing needs after discharge. Patients belongings returned to patient. Skin dry and intact; no breakdown noted. [facility] 12[facility]12[facility]19 at 1215 . ANAMARIA YOUSIF Troy left floor via ambulation, accompanied by my mother and women services staff. No concerns voiced via pt.
== END 2019-12-12 12:15 | disposition home or self-care (01) | DRG 807 ==
LOC: LDRP 06:01
PROVIDERS: ADMIT Obstetrics & Gynecology; ATTEND Obstetrics & Gynecology
PROC: 10E0XZZ Delivery of Products of Conception, External Approach (ICD-10-PCS; principal; 2019-12-10)
PROC: 0W8NXZZ Division of Female Perineum, External Approach (ICD-10-PCS; 2019-12-10)
PROC: 3E033VJ Introduction of Other Hormone into Peripheral Vein, Percutaneous Approach (ICD-10-PCS; 2019-12-10)
DX: O99.334 Smoking (tobacco) complicating childbirth (principal); F17.200 Nicotine dependence, unspecified, uncomplicated; O69.81X0 Labor and delivery complicated by cord around neck, without compression, not applicable or unspecified; Z37.0 Single live birth; Z3A.39 39 weeks gestation of pregnancy; Z23 Encounter for immunization; Z90.89 Acquired absence of other organs
CPT/HCPCS: 36415; 83033; 85025; 85460; 86850; 86900; 86901; 90715

== ENCOUNTER 2021-03-03 14:56 | Emergency (ER) | payer MEDICAID ==
[~2021-03-03] VITALS: Ht 160 cm; Wt 73.3 kg
[~2021-03-03 14:56] MED LIST changes: +ACET-93 PO; +DCS100C PO; +IBUP-1780 PO; +OXC5T PO
[2021-03-03 15:00] VITALS: BP 126/76
[2021-03-03] MEDS ORDERED: KETOROLAC 60 MG/2 ML VIAL IM STA (15:28)
[2021-03-03] MEDS ORDERED: METOCLOPRAMIDE INJ 10 MG/2 ML (REGLAN) IM STA (15:28)
[2021-03-03] MEDS ORDERED: diphenhydrAMINE 50 MG/ML INJ (BENADRYL) IM STA (15:28)
--- NOTE | 2021-03-03 15:32 | ED Headache ---
General Chief Complaint: Head/Cervical Problems Stated Complaint: HEADACHE Nursing Triage Note: Patient reports she has a history of migraines, states her current migraine started on Monday. She reports nausea and vomiting x 3 today, states she took tylenol at 10:00 am this morning without relief. Source: patient History of Present Illness Date Seen by Provider: Mar 03, 2021 Time Seen by Provider: 14:57 Initial Comments 30-year-old female presenting with complaints of migraine headache since Monday. She reports having headaches several times a week. She usually takes Tylenol to help with these but it was not helping at this time. Today she started having vomiting and has thrown up 3 times. She was having trouble trying to focus at work so she had to leave work and came here. She denies any fall or trauma to her head. She has had no fever, chills, drainage from her nose or ears, sore throat, sinus pressure or pain. She does have light sensitivity. Her pain is in the left side of her head and neck which is consistent with her migraines. Severity/Quality: severe Prior Headaches/Recent Trauma: frequent headaches, chronic headaches Associated Symptoms: No confusion, No fatigue, No facial pain, No fever/chills, No flushing, No loss of consciousness; nausea/vomiting; No nasal congestion, No nasal drainage, No numbness in legs/feet, No rash, No seizures, No sinus infection, No stiff neck, No vision changes, No weakness Allergies and Home Medications Allergies Coded Allergies: Penicillins (Unverified Allergy, Mild, Rash, 09/06/07) Home Medications Acetaminophen 500 Mg Tablet, 1,000 MG PO Q6HR Prescribed by: ANGEL LEE on 12/12/19935 Docusate Sodium 100 Mg Capsule, 100 MG PO BID Prescribed by: ANGEL MORAS on 12/12/19935 Ibuprofen 800 Mg Tablet, 800 MG PO Q8HR Prescribed by: ANGEL LEE on 12/12/19935 Oxycodone Hcl 5 Mg Tablet, 5 MG PO Q6H Prescribed by: ANGEL LEE on 12/12/19935 Patient Home Medication List Home Medication List Reviewed: Yes Review of Systems Review of Systems Constitutional: No chills, No fever Eyes: Photophobia Ears, Nose, Mouth, Throat: no symptoms reported Respiratory: no symptoms reported Cardiovascular: no symptoms reported Gastrointestinal: nausea, vomiting Genitourinary: no symptoms reported Musculoskeletal: neck pain (Left side of head going into her neck) Skin: no symptoms reported Psychiatric/Neurological: Headache (Left-sided headache pain consistent with her usual migraine) Past Eokjugz-Wgwcvf-Pznghc Hx Patient Social History Tobacco Use?: Yes Tobacco type used: Cigarettes Smoking Status: Current Everyday Smoker Substance use?: No Alcohol Use?: No Pt feels they are or have been: No Immunizations Up To Date PED Vaccines UTD: Yes Seasonal Allergies Seasonal Allergies: No Past Medical History Surgery/Hospitalization HX: history of migraines Surgeries: Yes Tonsillectomy Respiratory: No Cardiac: Yes (born with but has since resolved) Neurological: No Female Reproductive Disorders: Denies Sexually Transmitted Disease: No HIV/AIDS: No Genitourinary: No Gastrointestinal: No Musculoskeletal: No Endocrine: No HEENT: No Cancer: No Psychosocial: No Integumentary: No Blood Disorders: No Adverse Reaction/Blood Tranf: No Family Medical History FH: Crohn's disease 19 MOTHER Physical Exam Vital Signs Vital Signs - First Documented 03/03/21 15:00 Temp 36.4 Pulse 94 Resp 16 B/P (MAP) 126/76 (93) Pulse Ox 98 O2 Delivery Room Air Capillary Refill : Less Than 3 Seconds Height, Weight, BMI Height: '" Weight: lbs. oz. kg; 28.00 BMI Method: General Appearance: WD/WN, no apparent distress HEENT: PERRL/EOMI, pharynx normal Neck: full range of motion, supple, tender lateral (Left lateral muscle pain on the posterior aspect of her neck with muscle spasms) Cardiovascular: normal peripheral pulses, regular rate, rhythm Respiratory: chest non-tender, lungs clear, normal breath sounds, no respiratory distress, no accessory muscle use Extremities: normal range of motion, non-tender, normal capillary refill Psychiatric: alert, oriented x 3 Crainal Nerves: PERRL Coordination/Gait: normal gait Motor/Sensory: no motor deficit, no sensory deficit Skin: normal color, warm/dry; No rash Progress/Results/Core Measures Results/Orders My Orders Orders - CHOCO ARRIAGA MD Ketorolac Injection (Toradol Injection) (03/03/21 15:28) Diphenhydramine Injection (Benadryl Inje (6/30/21 15:28) Metoclopramide Injection (Reglan Injecti (03/03/21 15:28) Vital Signs/I&O 03/03/21 15:00 Temp 36.4 Pulse 94 Resp 16 B/P (MAP) 126/76 (93) Pulse Ox 98 O2 Delivery Room Air Blood Pressure Mean: 93 Progress Progress Note : Progress Note Discussed with patient about having follow-up to get on medicines to help with her headaches since they are so frequent. Will try giving Toradol, Benadryl, Reglan to help with nausea pain and help her rest. Advised that usually within 30 to 40 minutes at starting to kick in so if she is not reacting to the medicine after a few minutes we will discharge her home so she can try to let medicine kick in for her. Departure Impression Primary Impression: Migraine headache without aura Qualified Codes: G43.009 - Migraine without aura, not intractable, without status migrainosus Disposition: HOME, SELF-CARE Condition: Stable Departure-Patient Inst. Decision time for Depature: 15:32 Referrals: YONATHAN SALVADOR APRN (PCP) Primary Care Physician Patient Instructions: How to Keep Track of Your Headaches, Migraines in Adults Add. Discharge Instructions: Rest in cool dark room Stay well hydrated Check with clinic about other possible medicines to help prevent frequent migraine headaches All discharge instructions reviewed with patient and/or family. Voiced un derstanding. CHOCO ARRIAGA MD Mar 03, 2021 15:32
== END 2021-03-03 15:45 | disposition home or self-care (01) ==
LOC: EDUNIT# 14:56 → ER FS 14:58
DX: G43.009 Migraine without aura, not intractable, without status migrainosus (principal); F17.210 Nicotine dependence, cigarettes, uncomplicated
CPT/HCPCS: 96372; 99284

== ENCOUNTER 2021-03-03 16:25 | Emergency (ER) | payer MEDICAID ==
[~2021-03-03] VITALS: Ht 160 cm; Wt 73.3 kg
[2021-03-03] MEDS ORDERED: NS IV 1000 ML 1,000 ML IV STA (16:29)
[2021-03-03] MEDS ORDERED: LORazepam INJ 2 MG/ML (ATIVAN) VIAL IVP STA (16:33)
[2021-03-03] MEDS ORDERED: MAGNESIUM 1 GM/100 ML IVPB 100 ML IV STA (16:33)
[2021-03-03] MEDS ORDERED: diphenhydrAMINE 50 MG/ML INJ (BENADRYL) IVP STA (16:33)
--- NOTE | 2021-03-03 16:39 | ED Headache ---
General Chief Complaint: Head/Cervical Problems Stated Complaint: HEADACHE Source: patient History of Present Illness Date Seen by Provider: Mar 03, 2021 Time Seen by Provider: 16:28 Initial Comments 30 yo female returns to the ED less than an hour after being given medicine for Migraine headache. She is agitated and anxious and stating that she has to have the migraine headache go away. She states that since she has been dealing with it for the last 4 days and it is not improving she is having trouble sleeping and is getting short tempered. She is anxious and upset and states she was being short with her 15 month old daughter for no reason other than the headache and pain. She feels that she is at her breaking point and that the headache has to get better and go away. Nothing is different from when she was here around 3 pm but she feels the medicine has not helped and she now is working herself up and upset about her headache not going away. Prior Headaches/Recent Trauma: frequent headaches, chronic headaches Associated Symptoms: No confusion (feels like she is having trouble concentrating); fatigue; No fever/chills, No flushing, No loss of consciousness; nausea/vomiting; No nasal congestion, No nasal drainage, No numbness in legs/feet, No rash, No seizures, No sinus infection, No stiff neck, No weakness Allergies and Home Medications Allergies Coded Allergies: Penicillins (Unverified Allergy, Mild, Rash, 09/06/07) Home Medications Acetaminophen 500 Mg Tablet, 1,000 MG PO Q6HR Prescribed by: ANGEL LEE on 12/12/19935 Docusate Sodium 100 Mg Capsule, 100 MG PO BID Prescribed by: ANGEL LEE on 12/12/19935 Ibuprofen 800 Mg Tablet, 800 MG PO Q8HR Prescribed by: ANGEL LEE on 12/12/19935 Oxycodone Hcl 5 Mg Tablet, 5 MG PO Q6H Prescribed by: ANGEL LEE on 12/12/19935 Patient Home Medication List Home Medication List Reviewed: Yes Review of Systems Review of Systems Constitutional: No chills, No diaphoresis, No fever Eyes: Photophobia Ears, Nose, Mouth, Throat: no symptoms reported Respiratory: no symptoms reported Cardiovascular: no symptoms reported Gastrointestinal: see HPI Genitourinary: no symptoms reported Musculoskeletal: neck pain (left sided muscle pain of neck) Skin: No rash Psychiatric/Neurological: Anxiety, Headache; Denies Numbness, Denies Paresthesia Past Cwqgppf-Tuvfoh-Scfxbi Hx Immunizations Up To Date PED Vaccines UTD: Yes Seasonal Allergies Seasonal Allergies: No Past Medical History Surgeries: Yes Tonsillectomy Respiratory: No Cardiac: Yes (born with but has since resolved) Neurological: No Female Reproductive Disorders: Denies Sexually Transmitted Disease: No HIV/AIDS: No Genitourinary: No Gastrointestinal: No Musculoskeletal: No Endocrine: No HEENT: No Cancer: No Psychosocial: No Integumentary: No Blood Disorders: No Adverse Reaction/Blood Tranf: No Family Medical History FH: Crohn's disease 19 MOTHER Physical Exam Vital Signs Vital Signs - First Documented 03/03/21 16:32 Temp 36.4 Pulse 87 Resp 16 B/P (MAP) 128/76 (93) Pulse Ox 100 O2 Delivery Room Air Capillary Refill : Height, Weight, BMI Height: '" Weight: lbs. oz. kg; 28.00 BMI Method: General Appearance: other (anxious and upset) HEENT: PERRL/EOMI, pharynx normal Neck: full range of motion, supple, tender lateral (left lateral tenderness along muscles of neck) Cardiovascular: normal peripheral pulses, regular rate, rhythm Respiratory: chest non-tender, lungs clear, normal breath sounds Gastrointestinal: normal bowel sounds, soft, no pulsatile mass Extremities: normal range of motion, non-tender, normal capillary refill Psychiatric: alert, oriented x 3, other (anxious and upset) Crainal Nerves: PERRL Coordination/Gait: normal gait Motor/Sensory: no motor deficit, no sensory deficit Skin: normal color, warm/dry Progress/Results/Core Measures Results/Orders My Orders Orders - CHOCO ARRIAGA MD Ed Iv/Invasive Line Start (03/03/21 16:29) Ns Iv 1000 Ml (Sodium Chloride 0.9%) (03/03/21 16:29) Magnesium 1 Gm/100 Ml Ivpb (Magnesium Santos (03/03/21 16:33) Diphenhydramine Injection (Benadryl Inje (03/03/21 16:33) Lorazepam Injection (Ativan Injection) (03/03/21 16:33) Dexamethasone Injection (Decadron Inje (03/03/21 17:31) Orphenadrine Inj (Ed Only) (Norflex Inje (03/03/21 17:31) Vital Signs/I&O 03/03/21 03/03/21 16:32 18:18 Temp 36.4 36.8 Pulse 87 80 Resp 16 16 B/P (MAP) 128/76 (93) 122/68 Pulse Ox 100 100 O2 Delivery Room Air Room Air Progress Progress Note #1: Progress Note Advised pt that I did not have any medicine to immediately make her headache completely go away. Can place an IV and give IVF for hydration and give additional medicines to help with her symptoms. Based on recommendations from [employer] on line reference and prior consultations with neurologists on treating Migraine headaches will give Magnesium Sulfate, Ativan, Benadryl. Too early to repeat Toradol since it has been less than an hour since she got that IM administration. Progress Note #2: Time: 17:31 Progress Note On recheck of the patient the Magnesium was just finishing infusing as I was checking on her. She reports her pain is down to 4/10 now and more just pressure in face since she threw up on way home earlier and having pain in left side of neck still. Will let fluids finish infusing and give Dexamethasone 10 mg IV with Norflex 60 mg IV and then recheck pt about 20-30 min to see if she feels she can go home and rest. Progress Note #3: Time: 18:01 Progress Note Pt reports feeling much better now and fluids are done infusing. Will discharge to home and encourage resting in cool dark room. 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 Decision time for Depature: 18:03 Referrals: YONATHAN SALVADOR APRN (PCP) Primary Care Physician Patient Instructions: Migraines in Adults Add. Discharge Instructions: Rest in cool dark room Stay well hydrated Follow up with clinic for further evaluation and if medicine can help with controlling your migraine headaches. All discharge instructions reviewed with patient and/or family. Voiced understanding. CHOCO ARRIAGA MD Mar 03, 2021 16:39
[2021-03-03] MEDS ORDERED: ORPHENADRINE 60 MG/2 ML (NORFLEX) AMP (ED ONLY) IVP STA (17:31)
[2021-03-03 18:18] VITALS: BP 122/68
== END 2021-03-03 18:18 | disposition home or self-care (01) ==
LOC: EDUNIT# 16:25 → ER FS 16:27
DX: G43.009 Migraine without aura, not intractable, without status migrainosus (principal)
CPT/HCPCS: 96361; 96365; 96375

== ENCOUNTER 2021-07-29 17:21 | Emergency (ER) | payer MEDICAID ==
[~2021-07-29] VITALS: Ht 160 cm; Wt 74.8 kg
[~2021-07-29 17:21] MED LIST changes: -DCS100C PO; +DOCU-239 PO; -PSEU-137 PO; +PSEU-182 PO
[2021-07-29] MEDS ORDERED: FAMOTIDINE 20MG/2ML IV (PEPCID) IV STA (17:28)
--- NOTE | 2021-07-29 17:28 | ED Chest Pain ---
General Stated Complaint: CHEST PAIN History of Present Illness Date Seen by Provider: Jul 29, 2021 Time Seen by Provider: 17:27 Initial Comments 30-year-old female presents with chest pain. Patient reports she had some chest pain a couple weeks ago then had some, woke up with in the middle of the night and then started around 3:00 again today. She describes it as a crushing chest pain this can in the lower sternal area upper abdomen. She reports maybe a little bit short of breath when she is having a pain. She reports she had an episode of vomiting. She denies any diaphoresis or radiation of the pain. Patient reports that she smokes about 7 cigarettes a day. She last ate around 1 PM. She denies any alcohol or drug use. Allergies and Home Medications Allergies Coded Allergies: Penicillins (Unverified Allergy, Mild, Rash, 09/06/07) Patient Home Medication List Home Medication List Reviewed: Yes Acetaminophen (Acetaminophen) 500 Mg Tablet, 1,000 MG PO Q6HR Prescribed by: ANGEL LEE on 12/12/19935 Docusate Sodium (Dok) 100 Mg Capsule, 100 MG PO BID Prescribed by: ANGEL LEE on 12/12/19935 Ibuprofen (Ibuprofen) 800 Mg Tablet, 800 MG PO Q8HR Prescribed by: ANGEL LEE on 12/12/19935 Oxycodone Hcl (Oxyir Tablet) 5 Mg Tablet, 5 MG PO Q6H Prescribed by: ANGEL LEE on 12/12/19935 Review of Systems Review of Systems Constitutional: No chills, No fever EENTM: No Symptoms Reported Respiratory: Denies Cough, Denies Shortness of Air, Denies SOA at Rest Cardiovascular: Chest Pain; Denies Irregular Heart Rate, Denies Palpitations, Denies Syncope Gastrointestinal: Denies Abdominal Pain; Nausea, Vomiting Genitourinary: No Symptoms Reported Musculoskeletal: no symptoms reported Skin: no symptoms reported Psychiatric/Neurological: No Symptoms Reported Endocrine: No Symptoms Reported Hematologic/Lymphatic: No Symptoms Reported Past Domrhum-Eeucqs-Uoztqp Hx Patient Social History Tobacco Use?: Yes Tobacco type used: Cigarettes Immunizations Up To Date PED Vaccines UTD: Yes Seasonal Allergies Seasonal Allergies: No Past Medical History Surgeries: Yes Tonsillectomy Respiratory: No Cardiac: Yes (born with but has since resolved) Neurological: No Female Reproductive Disorders: Denies Sexually Transmitted Disease: No HIV/AIDS: No Genitourinary: No Gastrointestinal: No Musculoskeletal: No Endocrine: No HEENT: No Cancer: No Psychosocial: No Integumentary: No Blood Disorders: No Adverse Reaction/Blood Tranf: No Physical Exam Vital Signs Vital Signs - First Documented 07/29/21 17:30 Temp 36.2 Pulse 101 Resp 16 B/P (MAP) 109/72 (84) Pulse Ox 99 O2 Delivery Room Air Capillary Refill : Height, Weight, BMI Height: '" Weight: lbs. oz. 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 Norm as Tested Skin: Normal Color, Warm/Dry Progress/Results/Core Measures Results/Orders Lab Results Laboratory Tests Test 07/29/21 17:20 07/29/21 18:22 07/29/21 19:21 Range/Units White Blood Count 16.8 H 4.3-11.0 10^3/uL Red Blood Count 4.78 3.80-5.11 10^6/uL Hemoglobin 14.2 11.5-16.0 g/dL Hematocrit 44 35-52 % Mean Corpuscular Volume 91 80-99 fL Mean Corpuscular Hemoglobin 30 25-34 pg Mean Corpuscular Hemoglobin Concent 33 32-36 g/dL Red Cell Distribution Width 13.4 10.0-14.5 % Platelet Count 395 130-400 10^3/uL Mean Platelet Volume 9.3 9.0-12.2 fL Immature Granulocyte % (Auto) 0 % Neutrophils (%) (Auto) 78 H 42-75 % Lymphocytes (%) (Auto) 16 12-44 % Monocytes (%) (Auto) 5 0-12 % Eosinophils (%) (Auto) 1 0-10 % Basophils (%) (Auto) 0 0-10 % Neutrophils # (Auto) 13.1 H 1.8-7.8 X 10^3 Lymphocytes # (Auto) 2.6 1.0-4.0 X 10^3 Monocytes # (Auto) 0.8 0.0-1.0 X 10^3 Eosinophils # (Auto) 0.2 0.0-0.3 10^3/uL Basophils # (Auto) 0.0 0.0-0.1 10^3/uL Immature Granulocyte # (Auto) 0.1 0.0-0.1 10^3/uL Neutrophils % (Manual) 76 % Lymphocytes % (Manual) 10 % Monocytes % (Manual) 4 % Eosinophils % (Manual) 1 % Band Neutrophils 5 % Atypical Lymphocytes 4 % Platelet Estimate NORMAL Blood Morphology Comment NORMAL Prothrombin Time 12.8 12.2-14.7 SEC INR Comment 0.9 0.8-1.4 Activated Partial Thromboplast Time 30 24-35 SEC D-Dimer 0.36 0.00-0.49 UG/ML Sodium Level 141 135-145 MMOL/L Potassium Level 3.7 3.6-5.0 MMOL/L Chloride Level 104 98-107 MMOL/L Carbon Dioxide Level 24 21-32 MMOL/L Anion Gap 13 5-14 MMOL/L Blood Urea Nitrogen 12 7-18 MG/DL Creatinine 0.74 0.60-1.30 MG/DL Estimat Glomerular Filtration Rate 93 BUN/Creatinine Ratio 16 Glucose Level 107 H 70-105 MG/DL Calcium Level 9.3 8.5-10.1 MG/DL Corrected Calcium 8.5-10.1 MG/DL Magnesium Level 2.1 1.6-2.4 MG/DL Total Bilirubin 0.2 0.1-1.0 MG/DL Aspartate Amino Transf (AST/SGOT) 50 H 5-34 U/L Alanine Aminotransferase (ALT/SGPT) 35 0-55 U/L Alkaline Phosphatase 93 40-136 U/L Myoglobin 21.0 10.0-92.0 NG/ML Troponin I < 0.30 < 0.30 <0.30 NG/ML Total Protein 7.7 6.4-8.2 GM/DL Albumin 4.6 H 3.2-4.5 GM/DL Lipase 38 8-78 U/L Urine Color YELLOW Urine Clarity CLEAR Urine pH 6.0 5-9 Urine Specific [place] >=1.030 1.016-1.022 Urine Protein NEGATIVE NEGATIVE Urine Glucose (UA) NEGATIVE NEGATIVE Urine Ketones NEGATIVE NEGATIVE Urine Nitrite NEGATIVE NEGATIVE Urine Bilirubin NEGATIVE NEGATIVE Urine Urobilinogen 0.2 < = 1.0 MG/DL Urine Leukocyte Esterase NEGATIVE NEGATIVE Urine RBC (Auto) NEGATIVE NEGATIVE Urine RBC 0-2 /HPF Urine WBC RARE /HPF Urine Squamous Epithelial Cells 10-25 H /HPF Urine Crystals NONE /LPF Urine Bacteria FEW H /HPF Urine Casts NONE /LPF Urine Mucus MODERATE H /LPF Urine Culture Indicated NO My Orders Orders - FRIAS,SHIELA L DO Cbc With Automated Diff (07/29/21:) Magnesium (07/29/21:) Chest 1 View Ap/Pa Only (07/29/21:) Ekg Tracing (07/29/21:) Comprehensive Metabolic Panel (07/29/21:) Myoglobin Serum (07/29/21:) Protime With Inr (07/29/21:) Partial Thromboplastin Time (07/29/21:) Monitor-Rhythm Ecg Trace Only (07/29/21:) Lipid Panel (07/30/21 06:00) Ed Iv/Invasive Line Start (07/29/21 17:28) Lipase (07/29/21 17:28) Troponin I Fs (07/29/21 17:28) Famotidine Injection (Pepcid Injection) (07/29/21 17:28) Fibrin Degradation Products (07/29/21 17:29) Manual Differential (07/29/21 17:20) Ns Iv 1000 Ml (Sodium Chloride 0.9%) (07/29/21 18:16) Ceftriaxone (Rocephin) (07/29/21 18:30) Ua Culture If Indicated (07/29/21 18:16) Troponin I Fs (07/29/21 19:13) Medications Given in ED Current Medications Medications Dose Ordered Sig/Geo Route Start Time Stop Time Status Last Admin Dose Admin Ceftriaxone Sodium 2000 mg/ Sodium Chloride 50 ml @ 240 mls/hr ONCE ONCE IV 07/29/21 18:30 07/29/21 18:42 DC 07/29/21 18:36 240 MLS/HR Vital Signs/I&O 07/29/21 17:30 Temp 36.2 Pulse 101 Resp 16 B/P (MAP) 109/72 (84) Pulse Ox 99 O2 Delivery Room Air Progress Progress Note : Progress Note Patient with a fairly elevated WBC, she does have a negative troponin x2, negative EKG, negative x-ray with a slight elevation of 1 liver enzyme otherwise normal CMP and UA that does not show any signs of infection. I am unsure if her elevated white count is due to demargination sensation and reactive from her vomiting or she has an underlying unknown infection. With the vomiting, the upper abdominal lower chest pain I will start her on some Keflex and Zofran. She should follow-up with her primary care provider in approximately 5 days for recheck of her white count and symptoms Initial ECG Impression Date: Jul 29, 2021 Initial ECG Impression Time: 17:21 Initial ECG Rate: 90 Initial ECG Rhythm: Normal Sinus Initial ECG Intervals: Normal Initial ECG Impression: Normal Diagnostic Imaging Diagonstic Imaging: Xray Plain Films/CT/US/NM/MRI: chest Comments CHEST 1 VIEW AP/PA ONLY INDICATION: Chest pain. COMPARISON: None. FINDINGS: Single frontal view of the chest demonstrates normal heart size and pulmonary vascularity. The lungs are well aerated and clear. No large pleural effusion or pneumothorax is seen. The visualized osseous structures show no acute abnormality. IMPRESSION: No acute cardiopulmonary process. Departure Impression Primary Impression: Elevated white blood cell count, unspecified Qualified Codes: D72.829 - Elevated white blood cell count, unspecified Additional Impressions: Epigastric discomfort Nausea and vomiting Qualified Codes: R11.2 - Nausea with vomiting, unspecified Disposition: 01 HOME, SELF-CARE Condition: Stable Departure-Patient Inst. Referrals: YONATHAN SALVADOR APRN (PCP) Primary Care Physician [facility] (Family) Primary Care Physician Patient Instructions: Nausea and Vomiting, Adult, Chest Pain That Is Not Caused by the Heart (DC) Add. Discharge Instructions: Follow-up with your primary care provider in approximately 5 to days for recheck of your symptoms and lab Scripts Ondansetron (Ondansetron Odt) 4 Mg Tab.rapdis 4 MG PO Q6H PRN for NAUSEA/VOMITING, #20 TAB 0 Refills Prov: SHIELA FRIAS DO 07/29/21 Cephalexin (Cephalexin) 500 Mg Tablet 500 MG PO QID, #20 TAB 0 Refills Prov: ALTAGRACIASHIELA L DO 07/29/21 RONNIE FRIASR L DO Jul 29, 2021 17:27
--- NOTE | 2021-07-29 17:41 | Diagnostic Imaging Report ---
INDICATION: Chest pain. COMPARISON: None. FINDINGS: Single frontal view of the chest demonstrates normal heart size and pulmonary vascularity. The lungs are well aerated and clear. No large pleural effusion or pneumothorax is seen. The visualized osseous structures show no acute abnormality. IMPRESSION: No acute cardiopulmonary process. Dictated by: Dictated on workstation # [id number]
[2021-07-29 17:44] LABS: HEMATOCRIT 44 % (35-52); HEMOGLOBIN 14.2 g/dL (11.5-16.0); MEAN CORPUSCULAR HEMOGLOBIN 30 pg (25-34); MEAN CORPUSCULAR HGB CONC 33 g/dL (32-36); MEAN CORPUSCULAR VOLUME 91 fL (80-99); MEAN PLATELET VOLUME 9.3 fL (9.0-12.2); PLATELET COUNT 395 10^3/uL (130-400); WHITE BLOOD COUNT 16.8 10^3/uL (4.3-11.0)
[2021-07-29 17:45] LABS: BASOPHILS % (AUTO) 0 % (0-10); EOSINOPHILS # (AUTO) 0.2 10^3/uL (0.0-0.3); EOSINOPHILS % (AUTO) 1 % (0-10); LYMPHOCYTES # (AUTO) 2.6 X 10^3 (1.0-4.0); LYMPHOCYTES % (AUTO) 16 % (12-44); MONOCYTES # (AUTO) 0.8 X 10^3 (0.0-1.0); MONOCYTES % (AUTO) 5 % (0-12); NEUTROPHILS # (AUTO) 13.1 X 10^3 (1.8-7.8); NEUTROPHILS % (AUTO) 78 % (42-75)
[2021-07-29 17:56] LABS: INR 0.9 (0.8-1.4); PROTHROMBIN TIME PATIENT 12.8 SEC (12.2-14.7)
[2021-07-29 17:57] LABS: ATYPICAL LYMPHOCYTES 4 %; BAND NEUTROPHILS 5 %; EOSINOPHILS % (MANUAL) 1 %; LYMPHOCYTES % (MANUAL) 10 %; MONOCYTES % (MANUAL) 4 %; NEUTROPHILS % (MANUAL) 76 %; PLATELET ESTIMATE NORMAL; RBC MORPH NORMAL
[2021-07-29 18:02] LABS: ALKALINE PHOSPHATASE 93 U/L (40-136); BILIRUBIN,TOTAL 0.2 MG/DL (0.1-1.0); BUN/CREATININE RATIO 16; CALCIUM 9.3 MG/DL (8.5-10.1); CARBON DIOXIDE 24 MMOL/L (21-32); CHLORIDE 104 MMOL/L (98-107); CREATININE SERUM 0.74 MG/DL (0.60-1.30); GFR ESTIMATED 93; GLUCOSE 107 MG/DL (70-105); MAGNESIUM 2.1 MG/DL (1.6-2.4); POTASSIUM 3.7 MMOL/L (3.6-5.0); SODIUM 141 MMOL/L (135-145)
[2021-07-29 18:03] LABS: ALANINE AMINOTRANSFERASE 35 U/L (0-55); ALBUMIN 4.6 GM/DL (3.2-4.5); LIPASE 38 U/L (8-78); TOTAL PROTEIN 7.7 GM/DL (6.4-8.2)
[2021-07-29] MEDS ORDERED: NS IV 1000 ML 1,000 ML IV STA (18:16)
[2021-07-29 18:28] LABS: BILIRUBIN,URINE NEGATIVE (NEGATIVE); CLARITY,URINE CLEAR; COLOR,URINE YELLOW; GLUCOSE, URINE (UA) NEGATIVE (NEGATIVE); KETONES,URINE NEGATIVE (NEGATIVE); LEUKOCYTE ESTERASE ,URINE NEGATIVE (NEGATIVE); NITRITE,URINE NEGATIVE (NEGATIVE); PROTEIN,URINE NEGATIVE (NEGATIVE)
[2021-07-29] MEDS ORDERED: cefTRIAXone 2,000 MG in NS (IVPB) 50 ML IV ONE (18:30)
[2021-07-29 18:32] LABS: BACTERIA,URINE FEW /HPF; RBC,URINE 0-2 /HPF; WBC,URINE RARE /HPF
[2021-07-29] MEDS ORDERED: CEPH500T PO (20:04)
[2021-07-29] MEDS ORDERED: ONDA4TAB11 PO (20:04)
[2021-07-29 20:16] VITALS: BP 108/56
== END 2021-07-29 20:07 | disposition home or self-care (01) ==
LOC: EDUNIT# 17:21 → ER FS 17:22
DX: D72.829 Elevated white blood cell count, unspecified (principal); R10.13 Epigastric pain; R11.2 Nausea with vomiting, unspecified; F17.210 Nicotine dependence, cigarettes, uncomplicated
CPT/HCPCS: 36415; 71045; 80053; 81000; 83690; 83735; 83874; 84484; 84703; 85007; 85027; 85379; 85610; 85730; 93005; 93041

== ENCOUNTER 2021-08-17 03:43 | Emergency (ER) | payer MEDICAID ==
[~2021-08-17] VITALS: Ht 160 cm; Wt 72.7 kg
[~2021-08-17 03:43] MED LIST changes: +CEPH500T PO; +ONDA4TAB11 PO
[2021-08-17] MEDS ORDERED: ONDANSETRON 4 MG/2 ML (SDV) Z0FRAN IVP STA (03:53)
[2021-08-17] MEDS ORDERED: LORazepam INJ 2 MG/ML (ATIVAN) VIAL IVP STA (03:53)
[2021-08-17] MEDS ORDERED: PANTOPRAZOLE 40 MG (PROTONIX) VIAL IV STA (03:53)
[2021-08-17] MEDS ORDERED: NS IV 1000 ML 1,000 ML IV STA (03:53)
--- NOTE | 2021-08-17 03:57 | ED Chest Pain ---
General Stated Complaint: CHEST PAIN Source: patient, old records History of Present Illness Date Seen by Provider: Aug 17, 2021 Time Seen by Provider: 03:45 Initial Comments 31-year-old female presenting with complaints of sudden onset of epigastric pain going into her substernal chest area. This woke her up from sleep about 45 minutes prior to arrival in the ED. Is causing her to have pain with anxiety and she did have some vomiting as well. She describes it as a sharp pain. She had similar symptoms when she was seen around Thanksgiving time and was told she had an infection. She thinks that she still has some antibiotics left from that visit. She has not followed up through the clinic for any of her symptoms. She denies having a fever or chills. She feels like her heart is racing since she woke up with the pain. 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 NTG SL MATERIALS MANAGEMENT CLERK: No Associated Symptoms: abdominal pain (epigastric tenderness); No back pain, No diaphoresis, No dizziness, No edema, No fatigue, No fever/chills, No headache, No heartburn; nausea/vomiting; No rash; shortness of breath; No swelling/lump in chest, No syncope, No weakness Allergies and Home Medications Allergies Coded Allergies: Penicillins (Unverified Allergy, Mild, Rash, 09/06/07) Patient Home Medication List Home Medication List Reviewed: Yes Acetaminophen (Acetaminophen) 500 Mg Tablet, 1,000 MG PO Q6HR Prescribed by: ANGEL LEE on 12/12/19935 Cephalexin (Cephalexin) 500 Mg Tablet, 500 MG PO QID Prescribed by: SHIELA FRIAS on 07/29/212003 Docusate Sodium (Dok) 100 Mg Capsule, 100 MG PO BID Prescribed by: ANGEL LEE on 12/12/19935 Ibuprofen (Ibuprofen) 800 Mg Tablet, 800 MG PO Q8HR Prescribed by: ANGEL LEE on 12/12/19935 Ondansetron (Ondansetron Odt) 4 Mg Tab.rapdis, 4 MG PO Q6H PRN for NAUS EA/VOMITING Prescribed by: SHIELA FRIAS on 07/29/212003 Oxycodone Hcl (Oxyir Tablet) 5 Mg Tablet, 5 MG PO Q6H Prescribed by: ANGEL LEE on 12/12/19 0936 Pantoprazole Sodium (Pantoprazole Sodium) 40 Mg Tablet.dr, 40 MG PO DAILY Prescribed by: CHOCO ARRIAGA on 08/17/21 0540 Review of Systems Review of Systems Constitutional: No chills, No fever EENTM: No Symptoms Reported Respiratory: Cough Cardiovascular: See HPI Gastrointestinal: See HPI Genitourinary: Denies Burning, Denies Frequency Musculoskeletal: no symptoms reported Skin: No rash Psychiatric/Neurological: Anxiety; Denies Headache Hematologic/Lymphatic: Denies Blood Clots Past Icichmh-Eeldiq-Modobg Hx Patient Social History Tobacco Use?: Yes Tobacco type used: Cigarettes Smoking Status: Current Everyday Smoker Immunizations Up To Date PED Vaccines UTD: Yes First/Initial COVID19 Vaccinat: Not currently vaccinated Seasonal Allergies Seasonal Allergies: No Past Medical History Surgery/Hospitalization HX: Heart Murmur Surgeries: Yes Tonsillectomy Respiratory: No Cardiac: Yes (born with but has since resolved) Neurological: No Female Reproductive Disorders: Denies Sexually Transmitted Disease: No HIV/AIDS: No Genitourinary: No Gastrointestinal: No Musculoskeletal: No Endocrine: No HEENT: No Cancer: No Psychosocial: No Integumentary: No Blood Disorders: No Adverse Reaction/Blood Tranf: No Family Medical History FH: Crohn's disease 19 MOTHER Physical Exam Vital Signs Vital Signs - First Documented 08/17/21 03:45 Temp 36.6 Pulse 98 Resp 12 B/P (MAP) 112/81 (91) Pulse Ox 96 O2 Delivery Room Air Capillary Refill : Height, Weight, BMI Height: '" Weight: lbs. oz. kg; 29.00 BMI Method: General Appearance: Anxious, Obese HEENT: PERRL/EOMI, Pharynx Normal Neck: Full Range of Motion, Normal Inspection, Non Tender, Supple Respiratory: Chest Non Tender, Lungs Clear, No Accessory Muscle Use, No Respiratory Distress, Decreased Breath Sounds Cardiovascular: Normal Peripheral Pulses, Tachycardia Gastrointestinal: Normal Bowel Sounds, No Pulsatile Mass, Soft; No Distended, No Guarding, No Rebound; Tenderness (epigastric tenderness with palpation) Rectal: Deferred Extremity: Normal Capillary Refill, Normal Inspection, No Calf Tenderness, No Pedal Edema Neurologic/Psychiatric: Alert, 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, 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 Norm as Tested Skin: Normal Color, Warm/Dry Progress/Results/Core Measures Results/Orders Lab Results Laboratory Tests Test 08/17/21 04:00 Range/Units White Blood Count 11.8 H 4.3-11.0 10^3/uL Red Blood Count 4.58 3.80-5.11 10^6/uL Hemoglobin 13.8 11.5-16.0 g/dL Hematocrit 42 35-52 % Mean Corpuscular Volume 91 80-99 fL Mean Corpuscular Hemoglobin 30 25-34 pg Mean Corpuscular Hemoglobin Concent 33 32-36 g/dL Red Cell Distribution Width 13.6 10.0-14.5 % Platelet Count 366 130-400 10^3/uL Mean Platelet Volume 9.5 9.0-12.2 fL Immature Granulocyte % (Auto) 0 % Neutrophils (%) (Auto) 57 42-75 % Lymphocytes (%) (Auto) 35 12-44 % Monocytes (%) (Auto) 6 0-12 % Eosinophils (%) (Auto) 2 0-10 % Basophils (%) (Auto) 0 0-10 % Neutrophils # (Auto) 6.7 1.8-7.8 X 10^3 Lymphocytes # (Auto) 4.1 H 1.0-4.0 X 10^3 Monocytes # (Auto) 0.8 0.0-1.0 X 10^3 Eosinophils # (Auto) 0.2 0.0-0.3 10^3/uL Basophils # (Auto) 0.1 0.0-0.1 10^3/uL Immature Granulocyte # (Auto) 0.0 0.0-0.1 10^3/uL Neutrophils % (Manual) 61 % Lymphocytes % (Manual) 16 % Monocytes % (Manual) 5 % Eosinophils % (Manual) 2 % Basophils % (Manual) 1 % Atypical Lymphocytes 1 % Reactive Lymphocytes 14 % Platelet Estimate NORMAL Blood Morphology Comment NORMAL Prothrombin Time 11.9 L 12.2-14.7 SEC INR Comment 0.8 0.8-1.4 Activated Partial Thromboplast Time 27 24-35 SEC Sodium Level 140 135-145 MMOL/L Potassium Level 4.2 3.6-5.0 MMOL/L Chloride Level 103 98-107 MMOL/L Carbon Dioxide Level 27 21-32 MMOL/L Anion Gap 10 5-14 MMOL/L Blood Urea Nitrogen 13 7-18 MG/DL Creatinine 0.74 0.60-1.30 MG/DL Estimat Glomerular Filtration Rate 93 BUN/Creatinine Ratio 18 Glucose Level 112 H 70-105 MG/DL Calcium Level 9.4 8.5-10.1 MG/DL Corrected Calcium 9.2 8.5-10.1 MG/DL Magnesium Level 2.1 1.6-2.4 MG/DL Total Bilirubin 0.2 0.1-1.0 MG/DL Aspartate Amino Transf (AST/SGOT) 31 5-34 U/L Alanine Aminotransferase (ALT/SGPT) 24 0-55 U/L Alkaline Phosphatase 94 40-136 U/L Troponin I < 0.30 <0.30 NG/ML Pro-B-Type Natriuretic Peptide 23.1 <75.0 PG/ML Total Protein 7.1 6.4-8.2 GM/DL Albumin 4.2 3.2-4.5 GM/DL Lipase 66 8-78 U/L Smear Scan REACTIVE LYMPHS NOTE My Orders Orders - CHOCO ARRIAGA MD Cbc With Automated Diff (08/17/21 03:53) Magnesium (08/17/21 03:53) Chest 1 View Ap/Pa Only (08/17/21 03:53) Ekg Tracing (08/17/21 03:53) Comprehensive Metabolic Panel (08/17/21 03:53) Protime With Inr (08/17/21 03:53) Partial Thromboplastin Time (08/17/21 03:53) O2 (08/17/21 03:53) Monitor-Rhythm Ecg Trace Only (08/17/21 03:53) Ed Iv/Invasive Line Start (08/17/21 03:53) Lipase (08/17/21 03:53) Troponin I Fs (08/17/21 03:53) Probnp Fs (08/17/21 03:53) Ondansetron Injection (Zofran Injectio (08/17/21 03:53) Pantoprazole Injection (Protonix Injecti (08/17/21 03:53) Lorazepam Injection (Ativan Injection) (08/17/21 03:53) Ns Iv 1000 Ml (Sodium Chloride 0.9%) (08/17/21 03:53) Manual Differential (08/17/21 04:00) Vital Signs/I&O 08/17/21 08/17/21 08/17/21 03:45 04:40 05:55 Temp 36.6 Pulse 98 79 81 Resp 12 12 12 B/P (MAP) 112/81 (91) 105/67 103/68 Pulse Ox 96 97 O2 Delivery Room Air Room Air Room Air Progress Progress Note #1: Progress Note Patient appears very anxious and has describing pain going from her epigastric area up into her chest. She denies a burning sensation but states it is sharp and that that wake her up from sleep. This certainly could be consistent with reflux her heartburn symptoms. Will obtain electrocardiogram as well as blood work to evaluate from a heart standpoint. Since she just had a repeat evaluation like this on Thanksgiving will compare to those tests from them. Give IV fluids for hydration, 0.5 mg Ativan IV for anxiety, Protonix for gastritis and epigastric pain, Zofran for nausea and vomiting. Differential diagnosis includes myocardial infarction, pneumonia, esophageal spasms, GERD with spasms, hiatal hernia, gastric ulcer, gastritis Progress Note #2: Progress Note Labs for stable without acute significant abnormality to account for her epigastric pain. She does have a white blood cell count of 11.8 thousand this is borderline high with an increased number of reactive lymphocytes which would be consistent with more of a viral type infection. She has no acute significant abnormality on her chemistry panel including an negative troponin and a negative lipase. The chest x-ray does not show any acute infiltrate or effusion. Her symptoms are improved with treatment in the ED. Again based on her symptoms waking her up at night and being more epigastric going into the chest certainly with the more consistent with the GERD or reflux type situation. Will prescribe Protonix for gastritis and reflux. Encouraged to check with the clinic for continued symptoms. Give information for a bland diet for gastritis as well. Initial ECG Impression Date: Aug 17, 2021 Initial ECG Impression Time: 03:51 Initial ECG Rate: 90 Initial ECG Rhythm: Normal Sinus Initial ECG Comparisson: Unchanged Comment Normal sinus rhythm with a heart rate of 90 bpm. [place] interval [address] elevation. Borderline left axis deviation. QT interval 375 ms with a QTc interval 459 ms. Appears similar to prior tracings in the system. Diagnostic Imaging Diagonstic Imaging: Xray Plain Films/CT/US/NM/MRI: chest Comments NAME: ANAMARIA YOUSIF I MED REC#: [id number] PT STATUS: REG ER : 1990 PHYSICIAN: CHOCO ARRIAGA MD ADMIT DATE: 08/17/21/ER FS Draft Date of Exam:08/17/21 CHEST 1 VIEW AP/PA ONLY PATIENT HISTORY: chest pain, cough. TECHNIQUE: Single frontal view of the chest. COMPARISON: 07/29/2021 FINDINGS: The lung volumes are normal. No focal consolidation is seen. No large pleural effusion or pneumothorax is seen. The cardiomediastinal silhouette is normal in size and contour. No acute osseous abnormality is seen. IMPRESSION: No acute pulmonary abnormality seen. Dictated on workstation # [id number] Dict: 08/17/21419 Trans: 08/17/21421 [facility] [id number] Interpreted by: RAMANA BRENNAN MD Electronically signed by: Reviewed: Reviewed by Me Departure Impression Primary Impression: Epigastric pain Additional Impressions: Substernal chest pain GERD with esophagitis Qualified Codes: K21.00 - Gastro-esophageal reflux disease with esophagitis, without bleeding Disposition: HOME, SELF-CARE Condition: Improved Departure-Patient Inst. Decision time for Depature: 05:38 Referrals: YONATHAN SALVADOR APRN (PCP) Primary Care Physician [facility] (Family) Primary Care Physician Patient Instructions: Gastritis ED, Acid Reflux, Adult and Adolescent ED, Chest Pain, Adult ED, Ulcer and Gastritis Diet Add. Discharge Instructions: Use the medicine for acid reflux and to help with gastritis and inflammation to the lining of your stomach and esophagus. Follow a low fat and bland diet to help prevent waking up with pain overnight. Check back with clinic for continued symptoms or if not improving. Your heart tests did not show signs of a heart attack or heart damage and your chest xray did not show pneumonia or infection. Scripts Pantoprazole Sodium (Pantoprazole Sodium) 40 Mg Tablet. 40 MG PO DAILY for gastritis/GERD for 30 Days, #30 TAB 0 Refills Prov: CHOCO ARRIAGA MD 08/17/21 CHOCO ARRIAGA MD Aug 17, 2021 03:57
--- NOTE | 2021-08-17 04:23 | Diagnostic Imaging Report ---
PATIENT HISTORY: chest pain, cough. TECHNIQUE: Single frontal view of the chest. COMPARISON: 07/29/2021 FINDINGS: The lung volumes are normal. No focal consolidation is seen. No large pleural effusion or pneumothorax is seen. The cardiomediastinal silhouette is normal in size and contour. No acute osseous abnormality is seen. IMPRESSION: No acute pulmonary abnormality seen. Dictated by: Dictated on workstation # [id number]
[2021-08-17 04:38] LABS: INR 0.8 (0.8-1.4); PROTHROMBIN TIME PATIENT 11.9 SEC (12.2-14.7)
[2021-08-17 04:42] LABS: HEMATOCRIT 42 % (35-52); HEMOGLOBIN 13.8 g/dL (11.5-16.0); MEAN CORPUSCULAR HEMOGLOBIN 30 pg (25-34); MEAN CORPUSCULAR HGB CONC 33 g/dL (32-36); MEAN CORPUSCULAR VOLUME 91 fL (80-99); WHITE BLOOD COUNT 11.8 10^3/uL (4.3-11.0)
[2021-08-17 04:43] LABS: BASOPHILS # (AUTO) 0.1 10^3/uL (0.0-0.1); BASOPHILS % (AUTO) 0 % (0-10); EOSINOPHILS # (AUTO) 0.2 10^3/uL (0.0-0.3); EOSINOPHILS % (AUTO) 2 % (0-10); LYMPHOCYTES # (AUTO) 4.1 X 10^3 (1.0-4.0); LYMPHOCYTES % (AUTO) 35 % (12-44); MEAN PLATELET VOLUME 9.5 fL (9.0-12.2); MONOCYTES # (AUTO) 0.8 X 10^3 (0.0-1.0); MONOCYTES % (AUTO) 6 % (0-12); NEUTROPHILS # (AUTO) 6.7 X 10^3 (1.8-7.8); NEUTROPHILS % (AUTO) 57 % (42-75); PLATELET COUNT 366 10^3/uL (130-400)
[2021-08-17 05:12] LABS: ATYPICAL LYMPHOCYTES 1 %; BASOPHILS % (MANUAL) 1 %; EOSINOPHILS % (MANUAL) 2 %; LYMPHOCYTES % (MANUAL) 16 %; MONOCYTES % (MANUAL) 5 %; NEUTROPHILS % (MANUAL) 61 %; PLATELET ESTIMATE NORMAL; RBC MORPH NORMAL; REACTIVE LYMPHOCYTES 14 %; SMEAR SCAN COMMENT REACTIVE LYMPHS NOTE
[2021-08-17 05:14] LABS: CREATININE SERUM 0.74 MG/DL (0.60-1.30); POTASSIUM 4.2 MMOL/L (3.6-5.0)
[2021-08-17 05:15] LABS: ALBUMIN 4.2 GM/DL (3.2-4.5); BILIRUBIN,TOTAL 0.2 MG/DL (0.1-1.0); CALCIUM 9.4 MG/DL (8.5-10.1); MAGNESIUM 2.1 MG/DL (1.6-2.4); TOTAL PROTEIN 7.1 GM/DL (6.4-8.2)
[2021-08-17] MEDS ORDERED: PANT40TA52 PO (05:40)
[2021-08-17 05:55] VITALS: BP 103/68
== END 2021-08-17 05:57 | disposition home or self-care (01) ==
LOC: EDUNIT# 03:43 → ER FS 03:46
DX: R07.2 Precordial pain (principal); K21.00 Gastro-esophageal reflux disease with esophagitis, without bleeding; E66.9 Obesity, unspecified; F17.210 Nicotine dependence, cigarettes, uncomplicated; Z68.29 Body mass index [BMI] 29.0-29.9, adult
CPT/HCPCS: 36415; 71045; 80053; 83690; 83735; 83880; 84484; 85007; 85027; 85610; 85730; 93005; 93041